=== PATIENT | male | born 1960 | race Caucasian/White ===

== ENCOUNTER 2021-02-09 22:22 | Emergency (ER) | payer OTHER ==
[2021-02-09 22:37] VITALS: TEMP 98.3; BMI 25.8
[2021-02-10 00:25] LABS: HEMOGLOBIN 15.6 GM/dL (11.7-16.9); LYMPH % 33.3 % (8-40); MCHC 34.7 g/dl (32.0-35.9); MEAN CELL VOLUME 86.4 fl (80-96); MONO % 6.6 % (3.8-10.2); NEUT % 58.1 % (42.8-82.8); PLATELET COUNT 197 10^3/uL (134-434); RBC 5.21 M/mm3 (4.00-5.60); RDW 13.7 % (11.9-15.9); WHITE BLOOD COUNT 7.3 K/mm3 (4.0-10.0)
[2021-02-10 00:32] LABS: URINE APPEARANCE CLEAR; URINE BILIRUBIN NEGATIVE (NEGATIVE); URINE COLOR YELLOW; URINE GLUCOSE (UA) 3+ (NEGATIVE); URINE KETONE NEGATIVE (NEGATIVE); URINE LEUK ESTERASE NEGATIVE (NEGATIVE); URINE NITRITE NEGATIVE (NEGATIVE); URINE PROTEIN NEGATIVE (NEGATIVE); URINE UROBILINOGEN 0.2 mg/dL (0.2-1.0)
[2021-02-10 00:46] LABS: CHLORIDE 103 mmol/L (98-107); SODIUM 137 mmol/L (136-145)
[2021-02-10 00:49] LABS: ANION GAP 6 MMOL/L (8-16); BLOOD UREA NITROGEN 22.3 mg/dL (7-18); CO2 28 mmol/L (21-32); GLUCOSE,RANDOM 131 mg/dL (74-106)
[2021-02-10 00:52] LABS: CREATININE 1.5 mg/dL (0.55-1.3); SGOT/AST 17 U/L (15-37); SGPT/ALT 36 U/L (13-61)
[2021-02-10 00:55] LABS: TOT PROT 7.4 g/dl (6.4-8.2)
[2021-02-10 00:57] LABS: ALK PHOS 80 U/L (45-117)
[2021-02-10 02:05] VITALS: BP 125/86; PULSE 79
== END 2021-02-10 02:05 | disposition home or self-care (01) ==
LOC: JER 22:22
DX: E86.0 Dehydration (principal)
CPT/HCPCS: 36415; 80053; 81003; 82550; 84484; 85025; 93005; 93010; 99284-25